=== PATIENT | female | born 1970 | race Caucasian/White ===

== ENCOUNTER 2019-06-30 16:57 | Emergency (ER) | payer OTHER, SELFPAY ==
[2019-06-30 17:05] VITALS: BP 138/72; PULSE 73; RESP 20; TEMP 36.7; O2SAT 99
--- NOTE | 2019-06-30 17:32 | ED.URI ---
HPI - URI/Sore Throat General Chief Complaint: Upper Respiratory Infection Stated Complaint: fever/sore throat Time Seen by Provider: 06/30/19 17:23 Source: patient and RN notes reviewed Mode of arrival: ambulatory Limitations: no limitations History of Present Illness HPI Narrative: Patient presents today complaining of a 2-day history of sore throat with temperature of 100.2 today. 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 She currently rates her sore throat 04/14 and has been taking no medication for symptoms prior to arrival. States she did stop her allergy medicine a few days ago. Denies body aches, cough, congestion, rhinorrhea, ear pain, headache. MD elicited complaint: sore throat Related Data Home Medications Medication Instructions Recorded Confirmed atorvastatin 10 mg PO DAILY 06/30/19 06/30/19 glipizide 5 mg PO DAILY 06/30/19 06/30/19 metoprolol succinate 25 mg PO DAILY 06/30/19 06/30/19 Allergies Allergy/AdvReac Type Severity Reaction Status Date / Time Cephalosporins Allergy Mild Swelling Verified 06/30/19 17:35 metronidazole Allergy Mild Swelling Verified 06/30/19 17:35 adhesive Allergy Unknown RASH Verified 06/30/19 17:35 hyoscyamine Allergy Unknown SWELLING Verified 06/30/19 17:35 Sulfa (Sulfonamide Allergy Unknown Rash Verified 06/30/19 17:35 Antibiotics) Review of Systems Review of Systems: Narrative: CONSTITUTIONAL: Denies body aches, chills, or sweats.+ Fever EYES: Denies visual changes, redness, or discharge. ENT: Denies rhinorrhea, congestion, or otalgia.+ Sore throat CARDIOVASCULAR: Denies chest pain, palpitations, or edema. RESPIRATORY: Denies cough or dyspnea. GASTROINTESTINAL: Denies abdominal pain, nausea, vomiting, or diarrhea. GENITOURINARY: Denies dysuria or hematuria. SKIN: Denies rash, itching, or wounds. MUSCULOSKELETAL: Denies back pain, joint pain, or myalgia. NEUROLOGIC: Denies headache, numbness, tingling, or weakness. PSYCH: Denies depression or anxiety. [facility] Family History Family History (Updated 12/15/16 @ 13:05 by DOCTOR UNKNOWN) Other Family history of malignant neoplasm Social History Social History Smoking end date: 03/05/13 Alcohol intake: current Comments At time of signature, I have reviewed and agree with nursing past medical, surgical, social and family history unless otherwise noted. Please see nursing chart for further information. There is no relevant family history pertinent to the presenting complaint Exam Narrative: Exam Narrative: GENERAL: Well-appearing, well-nourished, and in no acute distress. HEAD: Normocephalic, atraumatic. EYES: EOMI. No redness or drainage. Conjunctivae normal. ENT: Mucous membranes pink and moist. Nares clear. No rhinorrhea. TMs normal bilaterally. Throat very slightly erythematous without edema or exudate. Uvula midline. NECK: Normal AROM. Supple. No lymphadenopathy. CHEST: No respiratory distress. Clear to auscultation. HEART: Regular rate and rhythm. No murmur appreciated. Normal peripheral pulses. EXTREMITIES: Normal range of motion. No edema. SKIN: Warm, dry, no rash. Capillary refill normal. Normal skin turgor. NEURO: No focal deficits. Alert and oriented x3. Gait steady. PSYCH: Normal affect. No signs of depression or anxiety. Course Vital Signs Vital signs: Vital Signs Temperature 98.1 F 06/30/19 17:05 Pulse Rate 73 06/30/19 17:05 Respiratory Rate 20 06/30/19 17:05 Blood Pressure 138/72 06/30/19 17:05 Pulse Oximetry 99 06/30/19 17:05 Temperature 98.1 F 06/30/19 17:05 Pulse Rate 73 06/30/19 17:05 Respiratory Rate 20 06/30/19 17:05 Blood Pressure 138/72 06/30/19 17:05 Pulse Oximetry 99 06/30/19 17:05 Reviewed. Pt has been instructed to follow up with her PCP regarding her elevated blood pressure today. MDM - URI/Sore Throat Differential Diagnosis Differential diagnosis: Likely upper
== END 2019-06-30 17:40 | disposition home or self-care (01) ==
PROVIDERS: Emergency Provider Nurse Practitioner; PCP Family Medicine
DX: J02.9 Acute pharyngitis, unspecified (principal); I10 Essential (primary) hypertension; E78.00 Pure hypercholesterolemia, unspecified; E11.9 Type 2 diabetes mellitus without complications
CPT/HCPCS: 87081; 87880; 99213; G0463

== ENCOUNTER 2021-10-29 15:36 | Emergency (ER) | payer OTHER, SELFPAY ==
[2021-10-29 15:42] VITALS: BP 120/69; PULSE 89; RESP 14; TEMP 36.7; O2SAT 99
--- NOTE | 2021-10-29 15:48 | ED.SKABFB ---
HPI - Skin/Abscess/Foreign Bdy General Chief complaint: Skin/Abscess/Foreign Body Stated complaint: Insect Bite Time Seen by Provider: 10/29/21 15:49 Source: patient, RN notes reviewed and old records reviewed Mode of arrival: ambulatory Limitations: no limitations History of Present Illness HPI narrative: 51-year-old female presents to the [facility] with complaints of left dorsal aspect thumb pain, swelling, redness and increased warmth. States 2 days ago she was stung by something. Has taken Benadryl. Patient has a history of diabetes. Patient states she takes medication with sulfa minutes and states that she is not allergic to any of the antibiotics that had previously been listed. Related Data Home Medications Medication Instructions Recorded Confirmed dulaglutide 1.5 mg/0.5 mL 1.5 mg subcut WEEKLY 10/29/21 10/29/21 subcutaneous pen injector (Trulicity) phentermine 37.5 mg tablet 37.5 mg PO DAILY 10/29/21 10/29/21 Allergies Allergy/AdvReac Type Severity Reaction Status Date / Time adhesive Allergy Unknown RASH Verified 10/29/21 15:51 Review of Systems Review of Systems: All systems reviewed & are unremarkable except as noted in HPI and below Constitutional: Constitutional: Reports no additional constitutional complaints, Denies chills and Denies fever(s) Eyes: Eyes: Reports no additional eye complaints ENT: Reports system reviewed and no additional complaints, except as documented Cardiovascular: Cardiovascular: Reports no additional cardiovascular complaints Respiratory: Respiratory: Reports no additional respiratory complaints Gastrointestinal: Gastrointestinal: Reports no additional gastrointestinal complaints Musculoskeletal: Musculoskeletal: Reports as per HPI Integumentary/Breasts: Skin/Breast: Reports as per HPI and Reports erythema Neurologic: Reports system reviewed and no additional complaints, except as documented Psychiatric: Psychiatric: Reports no additional psychiatric complaints Allergic/Immunologic: Allergic/Immunologic: Reports no additional allergic/immunologic complaints [facility] Family History Family History Other Family history of malignant neoplasm Social History Social History Smoking end date: 03/05/13 Alcohol intake: current Comments At the time of my signature, I reviewed and agree with the nursing past medical, surgical, social, and family history. There is no relevant family history pertinent to the patient complaint. Exam Const: General: healthy appearing, no acute distress and alert Nutritional Appearance: well nourished and obese Orientation/consciousness: patient oriented x3 Limitations: no limitations HENMT: Head: normal to inspection Ears: external ears normal Eyes: General: appearance normal, both eyes and all related structures Pupils: Equal, round and reactive pupils present Neck: Neck: normal visual inspection, no lymphadenopathy and no meningeal signs Chest: Chest palpation & inspection: normal inspection of the chest Resp: Effort & Inspection: normal respiratory effort and no use of accessory muscles Auscultation: clear to auscultation bilaterally, no crackles, no rales, no rhonchi and no wheezes Cardio: Rate: regular rate Rhythm: regular rhythm GI: GI Palp: Yes Soft to palpation and No Tenderness to palpation present (GI) Back/Spine/Pelvis: Cervical Spine: normal cervical lordosis Thoracic/Lumbar Spine: thoracic and lumbar spine normal to inspection Skin: General skin exam: normal color Rashes: no rashes Wounds: no wounds Other: Erythema, swelling noted to the dorsal thumb. Capillary refill under 2 seconds and sensation intact. Neuro: General: patient oriented x3, moves all extremities, no meningeal signs and no focal motor deficits Cranial nerves: Yes Equal, round and reactive pupils present Speech: normal speech
[2021-10-29 15:52] VITALS: BP 120/69; PULSE 89; RESP 14; TEMP 36.7; O2SAT 99
== END 2021-10-29 16:02 | disposition home or self-care (01) ==
PROVIDERS: Emergency Provider Nurse Practitioner; PCP Family Medicine
DX: T63.481A Toxic effect of venom of other arthropod, accidental (unintentional), initial encounter (principal); L03.012 Cellulitis of left finger; Z87.891 Personal history of nicotine dependence; E11.9 Type 2 diabetes mellitus without complications
CPT/HCPCS: 99213; G0463

== ENCOUNTER 2021-10-30 11:48 | Emergency (ER) | payer OTHER, SELFPAY ==
[2021-10-30 11:50] VITALS: BP 164/89; PULSE 100; RESP 18; TEMP 36.7; O2SAT 100
--- NOTE | 2021-10-30 13:03 | PC.NURSE ---
Patient called by triage nurse twice with no answer.
== END 2021-10-30 12:48 | disposition left against medical advice (07) ==
LOC: ANHED 13:06
PROVIDERS: PCP Family Medicine
DX: T63.461A Toxic effect of venom of wasps, accidental (unintentional), initial encounter (principal)
CPT/HCPCS: 99199

== ENCOUNTER 2022-03-28 08:21 | Emergency (ER) | payer OTHER, SELFPAY ==
--- NOTE | ~2022-03-28 | US_ITS ---
Pelvic ultrasound. Clinical History: Pelvic pain Technique: Realtime transabdominal and transvaginal scanning of the pelvis was performed. Color flow Doppler and Doppler spectral analysis were performed. Findings: The uterus is anteverted. The endometrial stripe has a thickness of 7 mm. Small posterior subserosal fibroid measures 1 cm in diameter. Cervical nabothian cysts are present. Neither ovary visualized. No other adnexal mass seen. There is no evidence of free fluid in the cul de sac. Impression: 1 cm uterine fibroid, as detailed above. Reviewed, dictated and finalized at location M. ILLERY MILLER HELPER Impression: 1 cm uterine fibroid, as detailed above.
--- NOTE | ~2022-03-28 | CT_ITS ---
CT Abdomen and Pelvis with contrast. History: Abdominal pain. Spiral CT of the abdomen and pelvis was performed after the administration of intravenous contrast. 1 00 cc of Omnipaque 350 was administered intravenously without complication. Dose reduction technique was used on this scan by utilizing automated exposure control and iterative reconstruction technique. The dose-length product (DLP) was 1441.71 mGy-cm. Findings: Scans through the lung bases demonstrate mild atelectatic change. The liver, spleen, pancreas, adrenals and kidneys are within normal limits. Cholecystectomy clips not ed. No evidence of aortic aneurysm. No lymphadenopathy is seen. There is no evidence of bowel obstruction. There is no evidence to suggest acute appendicitis or dive rticulitis. Images through the pelvis were performed. Urinary bladder unremarkable. No adnexal mass seen. No asci poncho. No ascites is seen. Impression: No significant abnormalities seen. Reviewed, dictated and finalized at [facility]. OR SERVICE AIDE Impression: No significant abnormalities seen.
[2022-03-28 08:23] VITALS: BP 137/81; PULSE 82; RESP 16; TEMP 36.8; O2SAT 100
[2022-03-28 08:41] LABS: Basophils Absolute Auto 0.1 K/mm3 (0.0-0.1); Basophils Percent Auto 0.7 % (0.2-1.2); Eosinophils Absolute Auto 0.4 K/mm3 (0-0.3); Eosinophils Percent Auto 4.6 % (0-4.4); Hematocrit 43.5 % (37.0-47.0); Hemoglobin 15.5 g/dL (12.0-15.0); Immature Granulocyte Absolute 0.01 K/mm3 (0.00-0.031); Immature Granulocyte Percent A 0.1 % (0-0.5); Lymphocytes Absolute Auto 3.22 K/mm3 (0.9-3.2); Mean Corpuscular HGB Conc 35.6 g/dl (32-36); Mean Corpuscular Volume 89.7 fl (80-100); Mean Platelet Volume 9.7 fl (7.4-10.4); Monocytes Absolute Auto 0.4 K/mm3 (0.1-0.6); Monocytes Percent Auto 5.3 % (2.6-8.5); Neutrophils Absolute Auto 4.2 K/mm3 (1.3-6.7); Neutrophils Percent Auto 50.3 % (45.5-73.1); Platelet Count Result 336 k/mm3 (150-375); Red Blood Count 4.85 M/mm3 (4.2-5.4); White Blood Count 8.3 K/mm3 (4.5-10.0)
[2022-03-28 08:58] LABS: Alanine Aminotransferase 19 U/L (6-35); Albumin Level 4.1 g/dL (3.5-5.1); Alkaline Phosphatase 73 U/L (38-126); Anion Gap 5 mmol/L (8-16); Aspartate Amino Transferase 21 U/L (14-36); Blood Urea Nitrogen 14 mg/dL (7-17); Calcium 8.9 mg/dL (8.4-10.2); Carbon Dioxide 31 mmol/L (22-30); Chloride 104 mmol/L (98-107); Estimated CRCL calculation 82 ml/min; Estimated Glomerular Filt Rate > 60; Glucose 111 mg/dL (65-110); Lipase 243 U/L (23-300); Potassium 4.3 mmol/L (3.4-5.0); Sodium 140 mmol/L (137-145)
[2022-03-28 09:21] LABS: Appearance Urine Slightly Cloudy (Clear); Bilirubin Urine Negative (Negative); Blood Urine Negative (Negative); Color Urine Yellow (Yellow); Glucose Urine UA Negative (Negative); Ketones Urine Negative (Negative); Leukocyte Esterase Ur Negative LEU/UL (Negative); Nitrate Urine Negative (Negative); Protein Urine Negative (Negative); Urobilinogen Urine 0.2 mg/dL (<2.0)
[2022-03-28 09:24] LABS: Add Urine Microscopic? NO
--- NOTE | 2022-03-28 09:57 | ED.ABDPAIN ---
HPI - Abdominal Pain General Chief Complaint: Abdominal Pain Stated Complaint: abdominal pain Time Seen by Provider: 03/28/22 08:57 Source: patient Mode of arrival: ambulatory Limitations: no limitations History of Present Illness HPI narrative: Patient is a 51 y/o female who presents to the ED with c/o right lower abdominal pain. Patient reports the pain began last night around 8 PM and was mild at first. The pain continued to worsen throughout the night, causing her difficulty sleeping. She tried using a heating pad, but otherwise did not take anything for the pain. She has never had pain like this before. Pain has been constant, somewhat radiating around to right lower back. Pain was still present this morning, which prompted her presentation. Patient also reports having nausea, but denies any vomiting, fever, diarrhea, constipation, dysuria, hematuria, vaginal bleeding or discharge, history of ovarian cysts. Related Data Home Medications Medication Instructions Recorded Confirmed dulaglutide 1.5 mg/0.5 mL 1.5 mg subcut WEEKLY 10/29/21 10/29/21 subcutaneous pen injector ([facility]) phentermine 37.5 mg tablet 37.5 mg PO DAILY 10/29/21 10/29/21 Allergies Allergy/AdvReac Type Severity Reaction Status Date / Time adhesive Allergy Unknown RASH Verified 03/28/22 09:01 Review of Systems Review of Systems: CONSTITUTIONAL: Denies fever, chills, or sweats. CARDIOVASCULAR: Denies chest pain. RESPIRATORY: Denies cough or dyspnea. GASTROINTESTINAL: See HPI. GENITOURINARY: Denies vaginal bleeding, vaginal discharge, dysuria or hematuria. SKIN: Denies rash or itching. MUSCULOSKELETAL: See HPI. All systems reviewed & are unremarkable except as noted in HPI and below PMFSH Past Medical History Medical History Diabetes mellitus Surgical History Surgical History No pertinent past surgical history Family History Family History Other Family history of malignant neoplasm Social History Social History Smoking end date: 03/05/13 Alcohol intake: current Exam Narrative: GENERAL: Well appearing, obese, non-toxic, in no acute distress. HEAD: Normocephalic, atraumatic. NECK: Supple. No adenopathy, no masses. RESPIRATORY: Airway patent, respirations nonlabored. Clear to auscultation bilaterally, no rales, rhonchi, wheezing. CARDIOVASCULAR: Regular rate and rhythm without murmurs, rubs, or gallops. Radial pulses 2+ and equal bilaterally. ABDOMINAL: Soft, tenderness throughout right lower/mid abdomen, nondistended, no hepatosplenomegaly. Normoactive BS. MUSCULOSKELETAL: Moves all extremities. Strength/ROM intact without gross deformities. SKIN: Warm, dry, normal color. No rashes. NEURO: A&O X3. Speech clear. Cranial nerves II-XII grossly intact. Steady gait. No ataxic movements. PSYCHIATRIC: Appropriate mood and affect. Normal interaction. Course Vital Signs Vital signs: Vital Signs Temperature 98.3 F 03/28/22 08:23 Pulse Rate 82 03/28/22 08:23 Respiratory Rate 16 03/28/22 08:23 Blood Pressure 137/81 03/28/22 08:23 Pulse Oximetry 100 03/28/22 08:23 Oxygen Delivery Room Air 03/28/22 08:23 Temperature 98.8 F 03/28/22 12:29 Pulse Rate 82 03/28/22 08:23 Respiratory Rate 16 03/28/22 12:29 Blood Pressure 137/81 03/28/22 08:23 Pulse Oximetry 99 03/28/22 12:29 Oxygen Delivery Room Air 03/28/22 08:23 MDM - Abdominal Pain MDM Narrative Medical decision making narrative: Patient presented to ED with 1 day history of right lower abdominal pain. Vitals stable upon arrival. No leukocytosis on CBC. CMP remarkable. UA without signs of infection. CT scan of abdomen pelvis obtained without acute intra-abdominal findings. Pelvic ultr
[2022-03-28] MEDS: ONDANSETRON INJ 4 MG/2 ML VIAL IV PUSH (10:14)
[2022-03-28] MEDS: SODIUM CHLORIDE 0.9% IV 1,000 ML 999 ML IV CONT (10:15)
[2022-03-28] MEDS: KETOROLAC 30 MG/ML VIAL (*BKC) IV PUSH (11:52)
[2022-03-28 12:29] VITALS: RESP 16; TEMP 37.1; O2SAT 99
== END 2022-03-28 12:41 | disposition home or self-care (01) ==
PROVIDERS: Emergency Medicine; Emergency Provider Physician Assistant; PCP Family Medicine
DX: D25.2 Subserosal leiomyoma of uterus (principal); R10.31 Right lower quadrant pain; E11.9 Type 2 diabetes mellitus without complications; Z79.84 Long term (current) use of oral hypoglycemic drugs
CPT/HCPCS: 36415; 74177; 76830; 76856; 80053; 81003; 81025; 83690; 85025; 96361; 96365; 96375; 99284; J0131; J1885; J2405; J7030; Q9967

== ENCOUNTER 2023-07-24 09:54 | Outpatient (CLI) | payer OTHER, SELFPAY ==
--- NOTE | ~2023-07-24 | XR_ITS ---
Left Knee Technique: AP, lateral, and sunrise views were obtained. Clinical History: Pain COMPARISON: 12/15/2016 Findings: No fracture or dislocation is seen. Osseous alignment is anatomic. Stable osteochondroma ar ising from the medial aspect of the distal femoral metaphyseal region. Joint spaces are preserved wit hout degenerative or erosive change. Soft tissues are unremarkable. No joint effusion is seen. Impression: Stable distal medial femoral osteochondroma. No acute abnormality seen. Reviewed, dictated and finalized at location M. Impression: Stable distal medial femoral osteochondroma. No acute abnormality seen.
== END 2023-07-24 09:55 | disposition home or self-care (01) ==
PROVIDERS: PCP Family Medicine; Visit Provider Registered Nurse
DX: R22.42 Localized swelling, mass and lump, left lower limb (principal); D16.22 Benign neoplasm of long bones of left lower limb
CPT/HCPCS: 73562

== ENCOUNTER 2023-08-29 15:11 | Outpatient (CLI) | payer OTHER, SELFPAY ==
--- NOTE | ~2023-08-29 | MR_ITS ---
MRI left knee without contrast Ordering provider: TANNER See History: . M25.562 - Pain in left knee . Comparison: None. FINDINGS: QUADRICEPS, PATELLAR TENDONS AND CRUCIATE LIGAMENTS: The quadriceps and patellar tendons are normal. The posterior cruciate ligament is normal. The anterior cruciate ligament is slightly attenuated with bright signal near to the insertion into the femur which may indicate partial tear. Follow-up advise d. MENISCI: No meniscal tear. COLLATERAL LIGAMENTS: Fluid is seen in the area of the lateral collateral ligament which may indicate partial tear. PATELLA: Normal position without tilt or subluxation. The medial and lateral patellar retinacula and medial patellofemoral ligament are intact. JOINT SPACE/ARTICULAR CARTILAGE: The articular cartilage of the knee is normal including the processor inspector ior femoral condyles. No joint effusion. BONES: Normal marrow signal. SUPERFICIAL AND DEEP SOFT TISSUE: No popliteal cyst. No bursitis. No muscle strain. Otherwise, rodriguez l. IMPRESSION: Bright signal with attenuation of the anterior cruciate ligament which may indicate partial tear. Fol low-up advised. Fluid in the area of the lateral collateral ligament which may indicate partial tear. Follow-up advis ed. Reviewed, dictated and finalized at location A. IMPRESSION: Bright signal with attenuation of the anterior cruciate ligament which may jessica shaw partial tear. Follow-up advised. Fluid in the area of the lateral collateral ligament which may indicate partial tear. Follow-up advised.
== END 2023-08-29 15:12 | disposition home or self-care (01) ==
LOC: ANHIMG 15:11
PROVIDERS: PCP Family Medicine; Visit Provider Nurse Practitioner Family
DX: M25.562 Pain in left knee (principal)
CPT/HCPCS: 73721

== ENCOUNTER 2024-12-01 16:14 | Emergency (ER) | payer OTHER, SELFPAY ==
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
[2024-12-01 16:22] VITALS: BP 171/82; PULSE 94; RESP 18; TEMP 36.7; O2SAT 99
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
--- OUTSIDE RECORDS SUMMARY | 2024-12-01 16:54 | XMS_ITS | Patient Health Record ---
Author Organization [facility] As cisimple Address [address] [facility] [address] [place] [address] Care Team Providers Care Process Control Supervisor Name Role Phone Moiz Mejia Unavailable [phone] Reason For Referral No Information Medications Medication SIG (Take, Route, Frequency, Duration) Notes Start Date End Date Status Naproxen 500 MG Tablet Oral 05/06/2020 Active Fluticasone Propionate Diskus 50 MCG/ACT Aerosol Powder Breath Activated Inhalation *Reorder from [facility] for eRx and Interaction Alerts* 05/06/2020 Active Jardiance 10 MG Tablet Oral 05/06/2020 Active ID Now COVID-19 Kit In Vitro *Reorder fro [facility] for eRx and Interaction Alerts* 05/06/2020 Active Viibryd 20 MG Tablet Oral 05/06/2020 Active Ozempic (0.25 or 0.5 MG/DOSE) 2 MG/3ML Solution Pen-injector Subcutaneous *Pick strength-form from [facility] for eRX* 05/06/2020 Active Ergocalciferol 1.25 MG (60162 UT) Capsule Oral 05/06/2020 Active Contour Blood Glucose System w/Device Kit In Vitro 05/06/2020 Active FREESTYLE SKYLER 14 DAY SENSOR KIT *Reorder from [facility] for eRx and Interaction Alerts* 05/06/2020 Active glipiZIDE 10 MG Tablet Oral 05/06/2020 Active Atorvastatin Calcium 20 MG Tablet Oral 05/06/2020 Active Viibryd 10 MG Tablet Oral 05/06/2020 Active Social History Social History Additional Details Category Social Info Options Details Migrated Social History Migrated Social History Alcohol Intake: None 04/16/2020,Tobacco Years: Never smoker 04/16/2020 Plan Of Treatment No Information Insurance Providers Payer Name Payer Address Payer Phone Subscriber Number Group Number Insured Name Patient Relationship to Insured Coverage Start Date Coverage End Date [employer] [employer] [address] [place] [address] [id number] PRASANNA CAMPOS Self - patient is the insured [place] Medicaid [address] [address] [place] [address] [id number] JUAN-PRASANNA VALLADARES Self - patient is the insured Medical (General) History Surgical History Surgery Date(Month/Year) Mesh (implantable) (C1781) Reconstruction of anterior c ruciate ligament of knee joint ([id number]) Operation on gallbladder ([id number]) Ligation of bilateral fallopian tubes ([id number])
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
--- OUTSIDE RECORDS SUMMARY | 2024-12-01 16:54 | XMS_ITS | Clinical Summary ---
Author Organization [facility] Address [address] [place] [address] Care Team Providers Care Bankruptcy Paralegal Name Role Phone Vijay Tapia MD Primary Care Provider [phone] Allergies Active Allergy Reactions Criticality Noted Date Comments Metformin Unknown High 10/04/2015 Medications cyclobenzaprine (FLEXERIL) 10 mg tablet Take 1 tablet (10 mg total) by mouth 2 (two) times a day as needed for muscle spasms 20 tablet 11/29/2018 Active metoprolol XL (TOPROL-XL) 25 mg 24 hr tablet 04/07/2019 Act prisca glipiZIDE (GLUCOTROL) 5 mg tablet 04/12/2019 Active cholecalciferol (VITAMIN D-3) 2000 unit capsule Take 1 capsule by mouth daily 09/26/2018 Active atorvastatin (LIPITOR) 10 mg tablet Take 10 mg by mouth daily Active ALPRAZolam (XANAX) 0.5 mg tablet 03/14/2019 Active HYDROcodone-vern taminophen (NORCO) 5-325 mg per tabletIndicatio ns:Pain Take 1 tablet by mouth every 6 (six) hours as needed for pain 12 tablet 04/08/2020 Active naproxen (NAPROSYN) 500 mg tablet Take 1 tablet (500 mg total) by mouth 2 (two) times a day with meals 30 tablet 04/08/2020 Active ciprofloxacin (CIPRO) 500 mg tablet Take 1 tablet (500 mg total) by mouth 2 (two) times a day 14 tablet 04/08/2020 Active ondansetron (ZOFRAN) 4 mg tablet Take 1 tablet (4 mg total) by mouth every 6 (six) hours 12 tablet 04/08/2020 Active naproxen (NAPROSYN) 500 mg tablet Take 1 tablet (500 mg total) by mouth 2 (two) times a day with meals 30 tablet 05/31/2022 Active Active Problems No known active problems Medical History Medical History Date Comments Diabetes mellitus Social History Tobacco Use Types Packs/Day Years Used Date Smoking Tobacco: Never Tobacco Cessation:Counseling Given: Not Answered Alcohol Use Standard Drinks/Week Comments Not Currently 0 (1 standard drink = 0.6 oz pur e alcohol) Personal Safety Answer Date Recorded Have you ever been in or are you currently in a harmful physical or emotional relationship or is someone making you feel afraid or unsafe? Denies 05/31/2022 Comments No Sex and Gender Information Value Date Recorded Sex Assigned at Not on file Legal Sex Female 4:37 PM [employer] Gender Identity Not on file Sexual Orientation Not on file Obstetrics History Last Filed Vital Signs Vital Sign Reading Time Taken Comments Blood Pressure 111/69 05/31/2022 3:00 PM CDT Pulse 82 05/31/2022 3:30 PM CDT Temperature 36.9 C (98.4 F) 05/31/2022 11:18 AM CDT Respiratory Rate 12 05/31/2022 3:30 PM CDT Oxygen Saturation 100% 05/31/2022 3:30 PM CDT Inhaled Oxygen Concentration - - Weight 90.7 kg (200 lb) 05/31/2022 11:18 AM CDT Height 167.6 cm (5' 6) 05/31/2022 11:18 AM CDT Body Mass Index 32.28 05/31/2022 11:18 AM CDT Plan of Treatment Health Maintenance Due Date Last Done Comments Cervical Cancer Screening 1970 Colon Cancer Screening-Colonoscopy 1970 Depression Screening 1970 Hepatitis C Screening 1970 DTaP/Tdap/Td Vaccine (1 - Tdap) 1981 Hepatitis B Screening 1988 Regular Well Visit/Exam 18-64 1988 Breast Cancer Screening-Mammogram 06/23/2015 015 Zoster Vaccine (1 of 2) 2020 Influenza Vaccine (#1) 2024 Pneumococcal vaccine <65 Aged Out No longer eligible based on patient's age to complete this topic Procedures Procedure Name Priority Date/Time Associated Diagnosis Comments SCREENING MAMMOGRAM Routine 06/22/2014 3 :49 PM CDT from Last 3 Months or Most Recently Relevant to Health Maintenance Results * Screening Mammogram (06/22/2014 3:49 PM CDT) Anatomical Region Laterality Modality Breast N/A Mammography 06/22/2014 3:49 PM CDT Narrative 06/22/2014 4:01 PM CDT SAGRARIO GARCIA M.D. LUCILLE SORENSON, FINAL REPORT The radiology attending physician has personally reviewed this study, and has reviewed and/or edited this written report and agrees with it. ACC# Date Time Exam [id number] Jun 22, 2014 15:49:00 [facility] [id number] Dig Breast Prosper Andre EXAMINATION: BILATERAL DIGITAL BREAST TOMOSYNTHESIS HISTORY: Abnormal screening mammogram. Recent baseline screening mammogram performed at [facility] in [place], [place] demonstrated bilateral asymmetries in the upper outer quadrants of both breasts. TECHNIQUE: Digital bilateral breast tomosynthesis was performed and reviewed. COMPARISON: 06/17/2014 BREAST PARENCHYMAL COMPOSITION: There are scattered areas of fibroglandular density. FINDINGS: No suspicious abnormality is confirmed in the areas of concern on recent screening mammogram. The patient has been informed. IMPRESSION: OVERALL FINAL ASSESSMENT: BI-RADS Category 1: Negative. RECOMMENDATION: Annual screening mammography is recommended. Requested By: Dictated By: LUCILLE SORENSON on Jun 22 2014 3:57P This document has been electronically signed by: SAGRARIO GARCIA M.D. on Jun 22 2014 4:00P [id number] Procedure Note Provider, MD Carlos - 06/23/2016 SAGRARIO GARCIA M.D. LUCILLE SORENSON, FINAL REPORT The radiology attending physician has personally reviewed this study, and has reviewed and/or edited this written report and agrees with it. ACC# Date Time Exam [id number] Jun 22, 2014 15:49:00 [facility] [id number] Dig Breast Prosper Andre EXAMINATION: BILATERAL DIGITAL BREAST TOMOSYNTHESIS HISTORY: Abnormal screening mammogram. Recent baseline screening mammogram performed at [facility] in [place], [place] demonstrated bilateral asymmetries in the upper outer quadrants of both breasts. TECHNIQUE: Digital bilateral breast tomosynthesis was performed and reviewed. COMPARISON: 06/17/2014 BREAST PARENCHYMAL COMPOSITION: There are scattered areas of fibroglandular density. FINDINGS: No suspicious abnormality is confirmed in the areas of concern on recent screening mammogram. The patient has been informed. IMPRESSION: OVERALL FINAL ASSESSMENT: BI-RADS Category 1: Negative. RECOMMENDATION: Annual screening mammography is recommended. Requested By: Dictated By: LUCILLE SORENSON on Jun 22 2014 3:57P This document has been electronically signed by: SAGRARIO GARCIA M.D. on Jun 22 2014 4:00P [id number] Historical Provider MD [facility]ED[facility] Yarelis l Result from Last 3 Months or Most Recently Relevant to Health Maintenance Insurance [facility] [address] [place] [address] [facility] Care Teams Bankruptcy Paralegal Relationship Specialty Start Date End Date Vijay Tapia MD PCP - General 11/29/18
--- NOTE | 2024-12-06 16:23 | PC.NURSE ---
Late entry for 12/01/24 Ulnar Gutter splint to left hand applied by EDP order.Pt tolerated procedure without difficulty, good cap refill, able to move fingers.
== END 2024-12-01 18:08 | disposition home or self-care (01) ==
PROVIDERS: Emergency Provider General Practice; PCP Family Medicine
DX: S62.305A Unspecified fracture of fourth metacarpal bone, left hand, initial encounter for closed fracture (principal); V49.40XA Driver injured in collision with unspecified motor vehicles in traffic accident, initial encounter
CPT/HCPCS: 29125; 73110; 73130; 99284